=== PATIENT | female | born 1975 | race Caucasian/White ===

== ENCOUNTER 2017-05-11 19:26 | Emergency (ER) | payer OTHER ==
[2017-05-11] MEDS: IBUPROFEN 600 MG TAB PO (20:38)
[2017-05-11] MEDS: DIAZEPAM 5 MG TAB PO (20:38)
== END 2017-05-11 21:20 | disposition home or self-care (01) ==
LOC: FTE 19:26
DX: S16.1XXA Strain of muscle, fascia and tendon at neck level, initial encounter (principal); F17.210 Nicotine dependence, cigarettes, uncomplicated; X58.XXXA Exposure to other specified factors, initial encounter; Y92.9 Unspecified place or not applicable; Z79.84 Long term (current) use of oral hypoglycemic drugs
CPT/HCPCS: 99283; Z7502

== ENCOUNTER 2017-05-15 21:30 | Emergency (ER) | payer OTHER ==
[2017-05-15] MEDS ORDERED: HYDROCODONE/APAP (5/325) TAB PO (23:30)
== END 2017-05-15 23:53 | disposition left against medical advice (07) ==
LOC: FTE 21:30
DX: M25.561 Pain in right knee (principal); Z79.84 Long term (current) use of oral hypoglycemic drugs
CPT/HCPCS: 99283; Z7502

== ENCOUNTER 2017-07-12 20:54 | Emergency (ER) | payer OTHER | END 2017-07-12 22:04 | disposition home or self-care (01) | LOC: FTE 20:54 | DX: Z76.0 Encounter for issue of repeat prescription (principal); Z79.84 Long term (current) use of oral hypoglycemic drugs; Z87.891 Personal history of nicotine dependence | CPT/HCPCS: 99281; Z7502 ==

== ENCOUNTER 2017-07-23 16:45 | Emergency (ER) | payer OTHER | END 2017-07-23 18:38 | disposition home or self-care (01) | LOC: E/R 16:45 → FTE 18:38 | DX: S81.832A Puncture wound without foreign body, left lower leg, initial encounter (principal); S81.831A Puncture wound without foreign body, right lower leg, initial encounter; E11.9 Type 2 diabetes mellitus without complications; W54.0XXA Bitten by dog, initial encounter; Y92.9 Unspecified place or not applicable; Z79.84 Long term (current) use of oral hypoglycemic drugs; Z87.891 Personal history of nicotine dependence | CPT/HCPCS: 99283; Z7502 ==

== ENCOUNTER 2017-08-10 19:33 | Emergency (ER) | payer OTHER ==
[2017-08-10 21:22] LABS: URINE PH (Dip) POC 5.5 (5.0-8.5)
[2017-08-10 21:22] LABS: URINE BLOOD (Dip) POC 3+ (NEGATIVE); URINE GLUCOSE (Dip) POC Negative (NEGATIVE); URINE KETONES (Dip) POC Negative (NEGATIVE); URINE LEUKOCYTE EST (Dip) POC Negative (NEGATIVE); URINE NITRITE (Dip) POC Negative (NEGATIVE); URINE TOTAL PROTEIN POC Negative (NEGATIVE)
[2017-08-10] MEDS: ACETAMINOPHEN 325 MG TAB PO (21:24)
[2017-08-10] MEDS: KETOROLAC 30 MG INJ IM (21:25)
== END 2017-08-10 23:30 | disposition home or self-care (01) ==
LOC: FTE 19:33
DX: M51.36 Other intervertebral disc degeneration, lumbar region (principal); F17.210 Nicotine dependence, cigarettes, uncomplicated; E11.9 Type 2 diabetes mellitus without complications; Z79.84 Long term (current) use of oral hypoglycemic drugs
CPT/HCPCS: 72100; 81003; 81025; 96372; 99284-25

== ENCOUNTER 2017-12-05 15:14 | Emergency (ER) | payer SELFPAY, OTHER | END 2017-12-05 17:31 | disposition left against medical advice (07) | LOC: FTE 17:31 | DX: M79.1 Myalgia (principal); E11.9 Type 2 diabetes mellitus without complications; Z79.84 Long term (current) use of oral hypoglycemic drugs | CPT/HCPCS: 99282 ==

== ENCOUNTER 2018-01-31 19:46 | Emergency (ER) | payer MEDICAID ==
[2018-01-31] MEDS: HALOPERIDOL 5 MG INJ IM (20:36)
[2018-01-31] MEDS ORDERED: LIDOCAINE 1% (MPF) 30 ML INJ INJ (21:00)
[2018-01-31 21:16] LABS: ADD MAN DIFF? NO
[2018-01-31 21:19] LABS: WHITE BLOOD COUNT 15.4 10^3/ul (4.8-10.8)
[2018-01-31 21:19] LABS: BASOPHIL # 0.1 10^3/ul (0.0-0.1); BASOPHILS % 0.6 % (0.0-2.0); EOSINOPHILS # 0.3 10^3/ul (0.0-0.5); HEMOGLOBIN 14.4 g/dl (12.0-16.0); LYMPHOCYTES # 3.3 10^3/ul (0.8-2.9); LYMPHOCYTES % 21.3 % (15.0-51.0); MEAN CORPUSCULAR HEMOGLOBIN 29.8 pg (29.0-33.0); MEAN CORPUSCULAR HGB CONC 33.5 g/dl (32.0-37.0); MEAN CORPUSCULAR VOLUME 88.8 fl (82.0-101.0); MEAN PLATELET VOLUME 10.5 fl (7.4-10.4); MONOCYTES % 6.5 % (0.0-11.0); NEUTROPHIL # 10.7 10^3/ul (1.6-7.5); NEUTROPHILS % 69.2 % (39.0-77.0); PLATELET COUNT 276 10^3/UL (140-415); RED BLOOD COUNT 4.84 10^6/ul (4.20-5.40); RED CELL DISTRIBUTION WIDTH 11.9 % (11.5-14.5)
[2018-01-31 21:38] LABS: ALANINE AMINOTRANSFERASE 21 IU/L (13-69); ALBUMIN 4.2 g/dl (3.3-4.9); ALKALINE PHOSPHATASE 90 IU/L (42-121); ANION GAP 10 (5-13); ASPARTATE AMINO TRANSFERASE 61 IU/L (15-46); BILIRUBIN,INDIRECT 0.8 mg/dl (0-1.1); BILIRUBIN,TOTAL 0.8 mg/dl (0.2-1.3); BLOOD UREA NITROGEN 15 mg/dl (7-20); CALCIUM 9.4 mg/dl (8.4-10.2); CARBON DIOXIDE 24 mmol/L (21-31); CHLORIDE 105 mmol/L (97-110); CREATININE 0.62 mg/dl (0.44-1.00); Estimated GFR > 60 mL/min (>60); GLUCOSE 100 mg/dl (70-220); POTASSIUM 3.2 mmol/L (3.5-5.1); SODIUM 139 mmol/L (135-144)
[2018-01-31 21:41] LABS: ACETAMINOPHEN < 10.0 ug/ml (10.0-30.0); ETHANOL < 10.0 mg/dl; SALICYLATE < 1.0 mg/dl (5.0-30.0)
[2018-02-01] MEDS: LIDOCAINE 1% (MPF) 5 ML VIAL INJ (04:02)
[2018-02-01] MEDS: DIPHTH/TET/ACEL PERTUSS (ADULT) 0.5 ML VIAL IM* (04:48)
[2018-02-01 12:00] LABS: URINE BLOOD (Dip) POC Trace-lysed (NEGATIVE); URINE GLUCOSE (Dip) POC Negative (NEGATIVE); URINE KETONES (Dip) POC Trace (NEGATIVE); URINE LEUKOCYTE EST (Dip) POC 3+ (NEGATIVE); URINE NITRITE (Dip) POC Negative (NEGATIVE); URINE TOTAL PROTEIN POC 1+ (NEGATIVE)
[2018-02-01] MEDS: CEPHALEXIN 500 MG CAP PO (13:26)
== END 2018-02-01 14:09 ==
LOC: E/R 19:46
DX: S81.812A Laceration without foreign body, left lower leg, initial encounter (principal); F23 Brief psychotic disorder; E11.9 Type 2 diabetes mellitus without complications; X78.8XXA Intentional self-harm by other sharp object, initial encounter; Y92.009 Unspecified place in unspecified non-institutional (private) residence as the place of occurrence of the external cause; Z23 Encounter for immunization; Z79.84 Long term (current) use of oral hypoglycemic drugs
CPT/HCPCS: 12005; 36415; 80053; 80307; 81003; 81025; 82962; 85025; 90471; 90715; 96372; 99285-25